=== PATIENT | female | born 1955 | race Caucasian/White ===

== ENCOUNTER → 2021-06-25 14:42 | Outpatient (BNVA) | payer OTHER, SELFPAY | PROVIDERS: Referring Provider Family Medicine; Visit Provider Nurse Practitioner | DX: G44.009 Cluster headache syndrome, unspecified, not intractable (principal) | CPT/HCPCS: 99203; 99204 ==

== ENCOUNTER → 2021-07-23 12:29 | Outpatient (BNVA) | payer OTHER, SELFPAY | PROVIDERS: PCP Family Medicine; Referring Provider Family Medicine; Visit Provider Anesthesiology | DX: G89.29 Other chronic pain (principal); G44.009 Cluster headache syndrome, unspecified, not intractable; Z79.891 Long term (current) use of opiate analgesic | CPT/HCPCS: 99204 ==

== ENCOUNTER → 2021-08-20 15:01 | Outpatient (BNVA) | payer OTHER, SELFPAY | PROVIDERS: PCP Family Medicine; Visit Provider Anesthesiology | DX: G44.009 Cluster headache syndrome, unspecified, not intractable (principal); Z79.891 Long term (current) use of opiate analgesic; Z87.891 Personal history of nicotine dependence | CPT/HCPCS: 99213 ==